=== PATIENT | female | born 1990 | race Caucasian/White ===

== ENCOUNTER 2022-03-11 07:05 | Inpatient (IN) | payer OTHER ==
[2022-03-11] MEDS ORDERED: Ondansetron 4 MG/2 ML SDV IVPUSH PRN (07:50)
[2022-03-11] MEDS ORDERED: Sodium Chloride 0.9% 10 ML Syringe FLUSH PRN (07:50)
[2022-03-11] MEDS ORDERED: Nalbuphine HCl 10 MG/ 1ML Amp IVPUSH PRN (07:50)
[2022-03-11] MEDS ORDERED: Oxytocin/Lactated Ringers 10 UNIT/1,000 ML BAG IV SCH ×2 (08:00)
[2022-03-11] MEDS: Misoprostol 25 MCG (1/4 of 100 MCG) Tab VAG PRN ×3 (08:01→16:39)
[2022-03-11] MEDS ORDERED: Sodium Chloride 0.9% 10 ML Syringe FLUSH SCH (09:00)
[2022-03-11] MEDS ORDERED: ePHEDrine 50 MG/ML SDV IVPUSH PRN (10:22)
[2022-03-11] MEDS ORDERED: fentaNYL 100 MCG/2 ML SDV EPIDUR PRN (10:22)
[2022-03-11] MEDS ORDERED: diphenhydrAMINE 50 MG/ML SDV IVPUSH PRN (10:22)
[2022-03-11] MEDS: Lactated Ringers 1,000 ML IV SCH (20:49)
[2022-03-11] MEDS: Bupivacaine/fentaNYL/NS 100 ML Bag EPIDUR PRN (21:45)
[2022-03-12] MEDS ORDERED: Bupivacaine 0.25% 10 ML SDV ONE
[2022-03-12] MEDS: Lactated Ringers 1,000 ML IV SCH (03:58)
[2022-03-12] MEDS: Bupivacaine/fentaNYL/NS 100 ML Bag EPIDUR PRN (04:01)
[2022-03-12] MEDS ORDERED: Methylergonovine 0.2 MG/1 ML Amp ONE (07:32)
[2022-03-12] MEDS ORDERED: Hydrocortisone Acetate 25 MG Supp RECTAL PRN (08:25)
[2022-03-12] MEDS ORDERED: Polyethylene Glycol 3350 Powder 17 GM Packet PO PRN (08:25)
[2022-03-12] MEDS ORDERED: Witch Hazel Medicated Pads 40/Jar TOP PRN (08:25)
[2022-03-12] MEDS ORDERED: Sennosides 8.6 MG Tab PO PRN (08:25)
[2022-03-12] MEDS ORDERED: Benzocaine/Menthol 20%-0.5% Spray 78 GM Cannister TOP PRN (08:25)
[2022-03-12] MEDS: Prenatal Multivitamin with Calcium/Folic Acid/Iron Tab PO SCH (10:42)
[2022-03-12] MEDS: Docusate Sodium 100 MG Cap PO PRN (10:42)
[2022-03-12] MEDS: Citalopram 20 MG Tab PO SCH (10:44)
[2022-03-12] MEDS: Famotidine 20 MG Tab PO SCH ×2 (10:44→14:01)
[2022-03-12] MEDS: Ibuprofen 600 MG Tab PO PRN (13:58)
[2022-03-12] MEDS: Acetaminophen 325 MG Tab PO PRN (16:40)
[2022-03-13] MEDS: Ibuprofen 600 MG Tab PO PRN ×3 (00:32→16:49)
[2022-03-13] MEDS: Acetaminophen 325 MG Tab PO PRN ×2 (02:08→21:33)
[2022-03-13] MEDS: Prenatal Multivitamin with Calcium/Folic Acid/Iron Tab PO SCH ×2 (07:24→09:46)
[2022-03-13] MEDS: Docusate Sodium 100 MG Cap PO PRN ×2 (07:24→21:32)
[2022-03-13] MEDS: Citalopram 20 MG Tab PO SCH (09:46)
[2022-03-13] MEDS: Famotidine 20 MG Tab PO SCH (13:58)
== END 2022-03-14 10:29 | disposition home or self-care (01) | DRG 768 ==
LOC: JD.OBCHECK 07:05 → JD.OB 07:50 → JD.OBCHECK 08:10 → JD.OB 08:10 → OBSVTOIN 03-12 07:25 → JD.OB 03-12 07:26
PROVIDERS: ADMIT Obstetrics & Gynecology; ATTEND Obstetrics & Gynecology
PROC: 10D07Z6 Extraction of Products of Conception, Vacuum, Via Natural or Artificial Opening (ICD-10-PCS; principal; 2022-03-12)
PROC: 0DQP0ZZ Repair Rectum, Open Approach (ICD-10-PCS; 2022-03-12)
PROC: 10907ZC Drainage of Amniotic Fluid, Therapeutic from Products of Conception, Via Natural or Artificial Opening (ICD-10-PCS; 2022-03-12)
PROC: 3E0P7VZ Introduction of Hormone into Female Reproductive, Via Natural or Artificial Opening (ICD-10-PCS; 2022-03-12)
PROC: 3E033VJ Introduction of Other Hormone into Peripheral Vein, Percutaneous Approach (ICD-10-PCS; 2022-03-12)
PROC: 3E0R3BZ Introduction of Anesthetic Agent into Spinal Canal, Percutaneous Approach (ICD-10-PCS; 2022-03-12)
DX: O48.0 Post-term pregnancy (principal); Z37.0 Single live birth; O70.3 Fourth degree perineal laceration during delivery; Z3A.41 41 weeks gestation of pregnancy; N94.810 Vulvar vestibulitis; O76 Abnormality in fetal heart rate and rhythm complicating labor and delivery
CPT/HCPCS: 01967; 36415; 51702; 59025; 59409; 85027; 86592; 86850; 86900; 86901; A9270-GY; J2210; J2590; J3010; J3490; J7120

== ENCOUNTER 2024-04-01 06:55 | Inpatient (IN) | payer BC ==
[~2024-04-01 06:55] MED LIST: Ropivacaine 0.2% PF 2 MG/ML 20 ML SDV ONE
[2024-04-01] MEDS ORDERED: Nalbuphine 10 MG/1 ML Vial IVPUSH PRN (07:04)
[2024-04-01] MEDS ORDERED: Sodium Chloride 0.9% 10 ML Syringe FLUSH PRN (07:04)
[2024-04-01] MEDS ORDERED: Lidocaine 1% 50 ML MDV INJECT PRN (07:04)
[2024-04-01] MEDS ORDERED: Misoprostol 25 MCG (1/4 of 100 MCG) Tab VAG PRN (07:04)
[2024-04-01] MEDS ORDERED: Ondansetron 4 MG/2 ML SDV IVPUSH PRN (07:04)
[2024-04-01] MEDS ORDERED: Oxytocin/0.9 % Sodium Chloride 30 UNIT/500 ML BAG IV SCH (07:15)
[2024-04-01 07:24] LABS: BASOPHILS ABSOLUTE AUTO 0.1 K/mm3 (0.0-0.2); BASOPHILS PERCENT AUTO 0.6 % (0.0-1.0); EOSINOPHILS ABSOLUTE AUTO 0.1 K/mm3 (0.0-0.4); EOSINOPHILS PERCENT AUTO 0.8 % (0.0-6.0); HEMATOCRIT 41.6 % (37.0-47.0); HEMOGLOBIN 13.6 gm/dl (12.0-16.0); IMMATURE GRAN ABSOLUTE AUTO 0.07 K/mm3 (0.00-0.05); IMMATURE GRAN PERCENT AUTO 0.7 % (0.0-0.4); LYMPHOCYTES ABSOLUTE AUTO 2.3 K/mm3 (1.0-4.8); LYMPHOCYTES PERCENT AUTO 23.5 % (24.0-44.0); MEAN CORPUSCULAR HGB CONC 32.7 g/dl (32.0-36.0); MEAN CORPUSCULAR VOLUME 91.6 fl (83.0-99.0); MEAN PLATELET VOLUME 10.5 fl (9.4-12.3); MONOCYTES ABSOLUTE AUTO 0.6 K/mm3 (0.0-0.8); MONOCYTES PERCENT AUTO 5.7 % (0.0-8.0); NEUTROPHILS ABSOLUTE AUTO 6.7 K/mm3 (1.8-7.7); NEUTROPHILS PERCENT AUTO 68.7 % (41.0-71.0); PLATELET COUNT,PLT 195 K/mm3 (150-400); RED BLOOD CELL COUNT 4.54 M/mm3 (4.10-5.30); WHITE BLOOD CELL COUNT,WBC 9.75 K/mm3 (3.9-11.3)
[2024-04-01] MEDS: Lactated Ringers 1,000 ML IV SCH (10:09)
[2024-04-01] MEDS: Oxytocin/0.9 % Sodium Chloride 30 UNIT/500 ML BAG IV SCH (10:12)
[2024-04-01] MEDS ORDERED: ePHEDrine 50 MG/ML SDV IVPUSH PRN (11:54)
[2024-04-01] MEDS ORDERED: diphenhydrAMINE 50 MG/ML SDV IVPUSH PRN (11:54)
[2024-04-01] MEDS: Bupivacaine/fentaNYL/NS 100 ML Bag EPIDUR PRN (12:01)
[2024-04-01] MEDS: fentaNYL 100 MCG/2 ML SDV EPIDUR PRN (12:01)
[2024-04-01] MEDS: Sodium Chloride 0.9% 10 ML Syringe FLUSH SCH (13:06)
[2024-04-01] MEDS ORDERED: Acetaminophen 325 MG Tab PO PRN (16:32)
[2024-04-01] MEDS ORDERED: Ibuprofen 600 MG Tab PO SCH (17:00)
[2024-04-01] MEDS: Witch Hazel Medicated Pads 40/Jar TOP PRN (17:15)
[2024-04-01] MEDS: Benzocaine/Menthol 20%-0.5% Spray 78 GM Cannister TOP PRN (17:16)
[2024-04-01] MEDS: Ibuprofen 600 MG Tab PO SCH (20:27)
[2024-04-01] MEDS: Docusate Sodium 100 MG Cap PO PRN (22:19)
[2024-04-02] MEDS ORDERED: Citalopram 20 MG Tab PO SCH (09:00)
[2024-04-02] MEDS ORDERED: Non-Formulary Medication 1 Each (Escitalopram 20 MG Tablet) PO SCH (09:00)
== END 2024-04-02 18:05 | disposition home or self-care (01) | DRG 560 ==
LOC: JD.OB 06:55 → OBSVTOIN 14:17 → JD.OB 14:18
PROVIDERS: ADMIT Obstetrics & Gynecology; ATTEND Obstetrics & Gynecology
PROC: 10E0XZZ Delivery of Products of Conception, External Approach (ICD-10-PCS; principal; 2024-04-01)
PROC: 10907ZC Drainage of Amniotic Fluid, Therapeutic from Products of Conception, Via Natural or Artificial Opening (ICD-10-PCS; 2024-04-01)
PROC: 0KQM0ZZ Repair Perineum Muscle, Open Approach (ICD-10-PCS; 2024-04-01)
PROC: 3E0R3BZ Introduction of Anesthetic Agent into Spinal Canal, Percutaneous Approach (ICD-10-PCS; 2024-04-01)
PROC: 00HU33Z Insertion of Infusion Device into Spinal Canal, Percutaneous Approach (ICD-10-PCS; 2024-04-01)
DX: O77.0 Labor and delivery complicated by meconium in amniotic fluid (principal); Z37.0 Single live birth; O99.344 Other mental disorders complicating childbirth; F41.9 Anxiety disorder, unspecified; F32.A Depression, unspecified; O70.1 Second degree perineal laceration during delivery; Z3A.40 40 weeks gestation of pregnancy; Z88.0 Allergy status to penicillin; Z86.16 Personal history of COVID-19
CPT/HCPCS: 36415; 51701; 59025; 59409; 85025; 86592; 86850; 86900; 86901; A9270-GY; C1758; J2795; J3010; J3490; J7120; J7999

== ENCOUNTER 2024-04-05 16:13 | Emergency (ER) | payer BC ==
[2024-04-05 17:44] LABS: BASOPHILS ABSOLUTE AUTO 0.1 K/mm3 (0.0-0.2); BASOPHILS PERCENT AUTO 0.7 % (0.0-1.0); EOSINOPHILS ABSOLUTE AUTO 0.2 K/mm3 (0.0-0.4); EOSINOPHILS PERCENT AUTO 3.1 % (0.0-6.0); HEMATOCRIT 34.9 % (37.0-47.0); HEMOGLOBIN 11.5 gm/dl (12.0-16.0); IMMATURE GRAN ABSOLUTE AUTO 0.05 K/mm3 (0.00-0.05); IMMATURE GRAN PERCENT AUTO 0.7 % (0.0-0.4); LYMPHOCYTES ABSOLUTE AUTO 1.8 K/mm3 (1.0-4.8); MEAN CORPUSCULAR HEMOGLOBIN 30.2 pg (28.0-32.0); MEAN CORPUSCULAR VOLUME 91.6 fl (83.0-99.0); MEAN PLATELET VOLUME 9.4 fl (9.4-12.3); MONOCYTES ABSOLUTE AUTO 0.5 K/mm3 (0.0-0.8); MONOCYTES PERCENT AUTO 7.1 % (0.0-8.0); NEUTROPHILS ABSOLUTE AUTO 4.9 K/mm3 (1.8-7.7); NEUTROPHILS PERCENT AUTO 64.4 % (41.0-71.0); PLATELET COUNT,PLT 274 K/mm3 (150-400); RED BLOOD CELL COUNT 3.81 M/mm3 (4.10-5.30); WHITE BLOOD CELL COUNT,WBC 7.51 K/mm3 (3.9-11.3)
[2024-04-05 18:08] LABS: A/G RATIO 0.7 (1-2); ALBUMIN 2.6 g/dl (3.4-5.0); ANION GAP 10.3 (5-15); BILIRUBIN TOTAL 0.2 mg/dL (0.2-1.0); BUN/CREATININE RATIO 22.5 (14-18); CREATININE 0.8 mg/dL (0.55-1.02); EST CRCL DRUG DOSING (CG) 92.76 mL/min; POTASSIUM,K 4.3 mEq/L (3.5-5.1); PROTEIN TOTAL,TP 6.5 g/dl (6.4-8.2)
== END 2024-04-05 19:30 | disposition home or self-care (01) ==
LOC: JD.ED 16:13
DX: R07.89 Other chest pain (principal); Z86.16 Personal history of COVID-19; Z88.0 Allergy status to penicillin; Z91.011 Allergy to milk products
CPT/HCPCS: 36415; 71046; 71046-26; 80053; 83690; 84484; 85025; 93005; 99285